=== PATIENT | male | born 1955 | race Caucasian/White ===

== ENCOUNTER 2024-10-12 22:48 | Observation (INO) | payer MEDICARE, OTHER, SELFPAY ==
[2024-10-12 16:03] VITALS: BP 178/93
[2024-10-12 16:29] LABS: % Basophils 0.3 % (0-2); % Eosinophils 0.2 % (0-6); % Immature Granulocytes 0.3 % (0-0.5); % Lymphocytes 17.7 % (20.5-51.1); % Monocytes 6.7 % (1.7-9.3); % Neutrophils 74.8 % (42.2-75.2); Absolute Lymphocytes 1.1 10^3/uL (1.2-3.4); Absolute Monocytes 0.4 10^3/uL (0.1-0.6); Absolute Neutrophils 4.7 10^3/uL (1.4-6.5); Hematocrit 36.6 % (39.0-52.0); Hemoglobin 13.1 g/dL (13.0-18.0); Mean Corp Hgb Conc. 35.8 g/dL (33.0-37.0); Mean Corpuscular Hgb 29.1 pg (27.0-31.0); Mean Corpuscular Volume 81.3 fL (80.0-94.0); Mean Platelet Volume 10.6 fL (7.4-10.4); Nucleated Red Blood Cells % 0 % (-); Platelet Count 151 10^3/uL (130-400); White Blood Cell Count 6.3 10^3/uL (4.8-10.8)
[2024-10-12 16:43] LABS: ALT (SGPT) 26 U/L (0-50); AST (SGOT) 21 U/L (17-59); Albumin 4.3 g/dl (3.5-5.0); Alkaline Phosphatase 49 U/L (38-126); Blood Urea Nitrogen 14 mg/dl (9-20); Calcium 9.4 mg/dl (8.4-10.2); Carbon Dioxide 25 mmol/L (22-30); Chloride 98 mmol/L (98-107); Estimated Creatinine Clearance 100 ml/min; Glucose 162 mg/dl (70-99); Potassium 4.3 mmol/L (3.5-5.1); Sodium 135 mmol/L (135-145); Total Bilirubin 1.2 mg/dl (0.2-1.3); Total Protein 6.9 g/dl (6.3-8.2); eGFR > 60.00
[2024-10-12 18:00] VITALS: BP 162/83
[2024-10-12 19:00] VITALS: BP 163/95
[2024-10-12] MEDS: ANTIVERT 25 MG PO (19:22)
[2024-10-12 20:00] VITALS: BP 141/77
--- NOTE | 2024-10-12 20:55 | ED.GENMED ---
History of Present Illness
General
Chief Complaint: Dizziness
Source: patient
Exam Limitations: none
Time Seen by Provider: 10/12/24 18:26
Nursing documentation reviewed up to this point in time: agreed with
History of Present Illness
History of Present Illness:
68-year-old male with a past medical history of hypertension, hyperlipidemia, diabetes who presents to the emergency department for evaluation of dizziness. Patient reports he woke up at around 3 or 4 AM with severe dizziness which he describes a
room spinning sensation. He reports associated severe nausea and dry heaving. He says that symptoms persisted throughout the day and seem to be getting worse particularly with movement and ultimately EMS was called to bring him to the hospital for
assessment. He does have mild associated headache. He denies any associated neck pain. He denies any change in his vision or speech. Denies any weakness or numbness in extremities. He has not had any recent congestion, URI symptoms, ear aching.
He denies having had similar symptoms in the past. EMS did give him fluids, Zofran, Versed and his symptoms slightly improved but seem to be worsening once again by the time of my assessment.
Review of Systems
Review of Systems
All Other Systems: ROS reviewed and negative except as documented in HPI and ROS
Constitutional: Denies fever or chills
EENT: Reports other (Denies earache); Denies sore throat or runny nose
Respiratory: Denies cough or trouble breathing
Cardiac: Denies chest pain, palpitations or syncope
ABD/GI: Reports nausea; Denies abdominal pain
: Denies flank pain
Musculoskeletal: Denies neck pain or back pain
Neurological: Reports dizzy and headache; Denies weakness or numbness
Phy Exam
Physical Exam
Physical Exam:
General: Awake, alert, oriented x3; sitting with emesis bag
Head: Normocephalic, atraumatic
Eyes: Conjunctiva normal, EOMI without nystagmus, pupils equal round and reactive to light bilaterally; well patient does have dizziness with movement no reproducible nystagmus on [place]-Hallpike
Ears: TMs clear bilaterally although there is some trace amount of cerumen in each canal no impaction
Throat: Airway intact, handling secretions
Neck: Trachea midline, supple without meningismus
Lungs: Clear to auscultation bilaterally, no wheezing, rales, rhonchi
Heart: Regular rate and rhythm, no murmurs, gallops, or rubs
Abd: Soft, non distended, nontender
Neuro: Cranial nerves intact 2 through 12, speech fluid with no dysarthria or aphasia, no limb ataxia, motor and sensory intact upper and lower extremities
Skin: no rash
Extremities: No edema in extremities, equal pulses in all extremities
Scores
NIH Stroke Score
Level of Consciousness: 0 - Alert
LOC Questions: 0-Answers both correctly
LOC Commands: 0-Performs both correctly
Best Horizontal Gaze: 0-Normal
Visual [place]illy: 0=Normal, no visual loss
Facial Palsy: 0=Normal, symmetrical
Motor - Right Arm: 0=No drift 10 seconds
Motor - Left Arm: 0=No drift 10 seconds
Motor - Right Le-No drift 5 seconds
Motor - Left Le-No drift 5 seconds
Limb Ataxia: 0-Absent
Sensation: 0-Normal
Best Language: 0-No aphasia
Dysarthria: 0-Normal
Extinction and Inattention: 0-No abnormality
Total Score:: 0
Heart Failure Risk
Heart Failure Risk Score: Not Applicable
Heart Score for Chest Pain Patients
STEMI patient?: Not applicable
Withdrawal Assessment of Alcohol
Withdrawal Assessment Completed?: Not applicable
Course
Orders/Labs/Results
Orders:
Orders
10/12/24 16:10
EKG [Electrocardiogram (*1)] Urgent
Reason for Study: Vertigo / Dizzy
EKG- Treatment ONCE
10/12/24 16:12
CBC/With Diff [Complete Blood Count/With Diff] Urgent
CMP [Comprehensive Metabolic Panel] Urgent
10/12/24 19:07
CT Head W/o Iv Contrast Urgent
Comment:
Reason For Exam: dizziness, headache, n/v
Meclizine [Antivert] 25 mg PO NOW STA
10/12/24 21:24
diazePAM [Valium Injection] 2 mg IV NOW STA
10/12/24 21:25
0.9% Sodium Chloride 500 ml [Nss] 500 ml IV BOLUS
10/12/24 21:28
Aspirin 325 mg PO NOW STA
Cefdinir [Omnicef] 300 mg PO NOW STA
Clopidogrel Bisulfate [Plavix] 75 mg PO NOW STA
Abnormal Lab Results
10/12/24
16:12
RBC 4.50 L 10^6/uL
(4.70-6.10)
Hct 36.6 L %
(39.0-52.0)
MPV 10.6 H fL
(7.4-10.4)
Absolute Lymphs (auto) 1.1 L 10^3/uL
(1.2-3.4)
Lymphocytes % 17.7 L %
(20.5-51.1)
Glucose 162 H mg/dl
(70-99)
10/12/24 16:12
10/12/24 16:12
Vital Signs
Initial and Last Documented VS:
Initial Vital Signs
Pulse Resp Pulse Ox
87 10 96
10/12/24 16:02 10/12/24 16:02 10/12/24 16:02
Last Documented Vital Signs
Temp Pulse Resp BP Pulse Ox
36.7 C 87 12 141/77 95
10/12/24 16:03 10/12/24 20:45 10/12/24 20:45 10/12/24 20:00 10/12/24 19:00
MDM/Problems Addressed
Differential Diagnosis Includes:
Peripheral vertigo (BPPV, labyrinthitis, eustachian tube dysfunction, etc), central vertigo/stroke
MDM/Problems Addressed:
68-year-old male presents for evaluation of vertigo started abruptly at 3 AM and has been constant and severe particular with movement. Hypertensive otherwise normal vitals. Physical exam as above�while he does have positional dizziness no
reproducible nystagmus noted. Labs sent off including a CBC and a CMP which were unremarkable. EKG shows sinus rhythm. Will send for CT head. Certainly clinical picture seems consistent with peripheral vertigo with abrupt onset of severe
symptoms that are positional but with no reproducible nystagmus and multiple risk factors for stroke certainly this remains in the differential diagnosis and should be ruled out. Will admit for symptom control and further evaluation pending CT.
CT head negative for any acute intracranial pathology there is some left maxillary sinusitis�can cover with Omnicef. Certainly sinus disease could contribute to vertigo. Clinical reassessment despite meclizine and then antiemetics patient still
having severe symptoms of vomiting. Treat with IV Valium. Case discussed with neurology will give aspirin/Plavix. Admit for symptom control and further evaluation of vertigo. Case discussed with hospitalist.
Chronic conditions affecting care:
Hypertension, hyperlipidemia, diabetes�higher risk for stroke
Acute Exacerbation and/or Progression of Chronic Illness:
Acutely hypertensive
Acute Exacerbation and/or Progression of Chronic Illness: HTN
*Radiology
Radiology exam reviewed: radiology read reviewed
*Pulse Oximetry
Patient hypoxic: no
*EKG
Interpreted by ED Provider?: Yes
Heart Rate: 86
Rate: normal
Rhythm: sinus
[place]: normal axis
Interval: normal interval
QRS Pattern: normal QRS
Ischemia: no ischemia
*Critical Care Note
Total Time (30-74mins, 75-104mins- exclusive of procedures): Not Applicable
Data Reviewed
Source: patient, spouse and ambulance crew
Patient Management
Discussion with other providers: Hospitalist (Discussed with hospitalist) and Air Pollution Auditor (Discussed with neurology)
Escalation/DeEscalation of care consider admission/obs:
Admission indicated
ED Attending Note
-
Portions of this chart may have been created with voice recognition software.� Occasional wrong word or��sound alike� substitutions may have occurred due to the inherent limitations of voice recognition software.
Discharge Plan
Departure
Admit to doctor: Ethan
Presentation/result/management discussed w/ accepting MD/DO: Hospitalist
Discharge Problem:
Vertigo, Sinusitis
Prescriptions:
No Action
metformin 1,000 mg Tablet
1,000 mg PO BID
valsartan 160 mg Tablet
160 mg PO DAILY
rosuvastatin 5 mg Tablet
5 mg PO HS
Referrals:
Amarjit Vasquez DO [Family Provider] -
Interventions
Interventions:
*Risk Screen - Suicide Last Done: 10/12/24 16:03
*General Assessment Last Done: 10/12/24 16:03
*Neglect/Abuse Screening Last Done: 10/12/24 16:03
*ED COVID-19 Vaccine History Last Done: 10/12/24 16:46
ED- Neurological Assessment Last Done: 10/12/24 16:46
ED Swallowing Screen Last Done: 10/12/24 19:00
Discharge Date and Time
Print Language: AZERBAIJANI
[2024-10-12] MEDS: VALIUM INJECTION 2 MG IV (21:27)
[2024-10-12] MEDS: NSS 500 IV (21:28)
--- NOTE | 2024-10-12 21:52 | HPS.HSE ---
Addendum entered and electronically signed by Fred Long DO 10/12/24 22:54:
Patient seen and examined independently. Agree with findings and plan as set forth by RAGINI Frances.
Patient is a 68y M with PMH significant for hypertension and DM-II who presents to ED complaining of dizziness and nausea. Patient states that symptoms started early this AM and have persisted throughout the day. Spinning sensation is worse
with movement. Pos nausea / dry heaves. No headache, vision changes, numbness / tingling, etc.
Patient denies any nasal congestion, rhinorrhea, facial pain, etc.
Ass:
Vertigo
Hypertension
Maxillary Sinusitis by CT
DM-II
Plan:
Observe overnight for further evaluation and treatment.
Continue supportive care with Valium PRN.
PT / OT evaluations in the AM.
Check MRI for evidence of posterior circulation CVA.
ASA and Plavix for now.
Neurology evaluation for additional recommendations.
Continue usual home medications.
Follow glucose and cover with SSI as needed.
Likely does not require abx for radiographic sinusitis.
Nasal saline / supportive care.
Original Note:
Family Physician
-
Family Physician: Amarjit Vasquez
Chief Complaint
-
dizziness
History of Present Illness
Patient is a 68-year-old male with past medical history significant for hypertension, hyperlipidemia and diabetes who presented to [facility] ED for evaluation of dizziness. Patient describes waking up at approximately 0300 this morning with the
room spinning. Denies any injury or trauma. Patient reports the dizziness has been persistent all day and this afternoon had associated nausea and heaving. Patient states if he lies on either side he can get the spinning to subside but once he moves
it starts up again. He continues to have associated nausea. Denies any vision changes, any neck pain or headache.
Medical History
Past Medical History
Past Medical History: Reports Other
Additional Past Medical History:
hypertension
hyperlipidemia
diabetes
Past Surgical History: Reports Other
Additional Past Surgical History:
Bilateral knee replacements
cataract extraction
Social History
Tobacco: Former Smoker (quit 25 years ago, 84 pack year history )
Alcohol: Occasional
Drug: None
Personal:
Living: With Family
Employment: Retired
Family History
Family History: Not pertinent
Allergies / Home Medications
Allergies reflects when Allergies were last updated in [employer].
Home Medications with original date entered in [employer]
Allergy/Medication List:
Allergies
Allergy/AdvReac Type Severity Reaction Status Date / Time
Penicillins Allergy Rash Verified 10/12/24 16:03
Home Medications
metformin 1,000 mg tablet 1,000 mg PO BID 10/12/24
rosuvastatin 5 mg tablet 5 mg PO HS 10/12/24
valsartan 160 mg tablet 160 mg PO DAILY 10/12/24
Review of Systems
-
History Source: Patient
Constitutional: Reports Sleep Disturbance
EENT: Reports No Symptoms
Respiratory: Reports No Symptoms
Cardiac: Reports No Symptoms
Abdomen/GI: Reports Nausea
: Reports No Symptoms
Musculoskeletal: Reports No Symptoms
Skin: Reports No Symptoms
Neurological: Reports Dizzy and Headache
Endocrine: Reports No Symptoms
Hematologic/Lymphatic: Reports No Symptoms
Psych: Reports No Symptoms
Physical Exam
Vital Signs
Vital Signs
Temp Pulse Resp BP Pulse Ox
98.0 F 87 12 141/77 95
10/12/24 16:03 10/12/24 20:45 10/12/24 20:45 10/12/24 20:00 10/12/24 19:00
Physical Exam
General: Well Developed, Well Nourished, No Apparent Distress, Comfortable and Conversant
HEENT: NormoCephalic, Moist mucous membranes, Atraumatic, PERRLA, [place] Conjunctivae, Nose Appears Normal and Ears Appear Normal
Respiratory: Clear and Non Labored Respirations
Cardiac: S1/S2, Regular Rhythm and Murmur; No Rub or Gallop
Breast: Deferred by me
GI: Soft, Non Tender, Non Distended and Normal Bowel Sounds; No Organomegaly
Rectal: Deferred by Provider
Genito-urinary: Deferred by me
Musculoskeletal: No Clubbing, No Cyanosis and No Edema
Skin: Warm and IV/Catheter Site; No Rash
Neuro: Awake, Alert, AO x 3 and Nonfocal/grossly intact
Hematologic/Lymphatic: No Lymphadenopathy
Psych: Calm and Intact Judgment/Insight
Laboratory Results
-
10/12/24 16:12
10/12/24 16:12
Laboratory Results
Total Bilirubin 1.2 mg/dl (0.2-1.3) 10/12/24 16:12
AST 21 U/L (17-59) 10/12/24 16:12
ALT 26 U/L (0-50) 10/12/24 16:12
Alkaline Phosphatase 49 U/L (38-126) 10/12/24 16:12
Data Reviewed
-
CT Scan: Report Reviewed by me (Head CT: There are no focal or acute intracranial abnormalities. There is mild cortical atrophy. There is left maxillary sinusitis)
Medical Tests (Nuc Med, Echo, EKG etc): Report Reviewed by me (EKG: NORMAL SINUS RHYTHM MINIMAL VOLTAGE CRITERIA FOR LVH, MAY BE NORMAL VARIANT ( R in aVL ))
Lab Data: Labs Reviewed by me
Impression/Plan
-
IMPRESSION/PLAN:
#Vertigo VS. CVA/TIA
Head CT: There are no focal or acute intracranial abnormalities.
There is mild cortical atrophy.
There is left maxillary sinusitis
- Admit to Telemetry
- PRN Valium
- Saline nasal spray
- Consult Neurology
- Brain MRI
#hypertension
- continue valsartan
#hyperlipidemia
- continue rosuvastatin
#diabetes
- continue metformin
Code Status: Full Code
DVT Prophylaxis: SCDs
[2024-10-12] MEDS: ASPIRIN 325 MG PO (22:24)
[2024-10-12] MEDS: PLAVIX 75 MG PO (22:24)
[2024-10-12] MEDS: OMNICEF 300 MG PO (22:24)
[2024-10-13] VITALS (18 sets, daily range): BP systolic 136–171; BP diastolic 62–91; PULSE 70–75; BMI 27.4; BMI 26.2
[2024-10-13 03:25] LABS: Urine Albumin Negative (Neg - Trace); Urine Bilirubin Negative (Negative); Urine Character Clear (Clear); Urine Color Yellow; Urine Glucose Negative (Negative); Urine Ketone Negative (Negative); Urine Leukocyte Negative (Negative); Urine Nitrite Negative (Negative); Urine Occult Blood Negative (Negative); Urine Urobilinogen Negative (Neg - 1+)
[2024-10-13] MEDS: FLUSH (NSS) 1 FLUSH IV (05:56)
[2024-10-13 06:31] LABS: Hemoglobin 13.1 g/dL (13.0-18.0); Mean Corp Hgb Conc. 35.4 g/dL (33.0-37.0); Mean Platelet Volume 10.7 fL (7.4-10.4); Platelet Count 157 10^3/uL (130-400); Red Blood Cell Count 4.51 10^6/uL (4.70-6.10); Red Cell Dist. Width 11.9 % (11.5-14.5); White Blood Cell Count 5.7 10^3/uL (4.8-10.8)
[2024-10-13 06:35] LABS: PT 13.7 Sec (11.4-14.6)
[2024-10-13 06:36] LABS: APTT 26.9 Sec (23.4-35.0)
[2024-10-13 06:47] LABS: HDL Cholesterol 34 mg/dl; LDL Cholesterol, Calculated 46 mg/dl; Total Cholesterol 117 mg/dl (50-199); Triglyceride 189 mg/dl (10-149); Very Low Density Lipoprotein 37 mg/dl (0-30)
[2024-10-13 06:50] LABS: Troponin I < 0.012 ng/ml
[2024-10-13 07:00] LABS: Erythrocyte Sed Rate 19 mm/hour (0-20)
[2024-10-13] MEDS: DIOVAN 160 MG PO (08:19)
[2024-10-13] MEDS: LOW STRENGTH ASPIRIN 81 MG PO (08:20)
[2024-10-13] MEDS: GLUCOPHAGE 1000 MG PO ×2 (08:20→22:38)
[2024-10-13] MEDS: VALIUM INJECTION 2 MG IV (08:33)
[2024-10-13 08:36] LABS: Glycohemoglobin (HgbA1c) 7.3 % (4.0-5.6)
[2024-10-13 08:37] LABS: Glucose - Point of Care 159 mg/dl (70-99)
[2024-10-13] MEDS: NOVOLOG FLEXPEN-LOW RESISTANCE SC ×2 (08:42→16:47)
--- NOTE | 2024-10-13 09:05 | W.PN.HOSP.TC ---
Today's Communication/Plan
-
see bold
Assessment / Plan
Assessment / Plan
HPI: 68y M with PMH significant for hypertension and DM-II who presents to ED complaining of dizziness and nausea. Patient states that symptoms started early this AM and have persisted throughout the day. Spinning sensation is worse with
movement. Pos nausea / dry heaves. No headache, vision changes, numbness / tingling, etc.
Patient denies any nasal congestion, rhinorrhea, facial pain, etc.
#Vertigo
#BPPV
Head CT negative
Appreciate neurology input, who suspects BPV left ear with positive [place]-Hallpike
Neurology states no need for MRI
PT/OT, meclizine as needed
#Headache
Toradol 50 mg IV x 1, acetaminophen 1 g x 1, Compazine 10 mg IV x 1
#Essential hypertension
Continue home Diovan 160 mg daily
Blood pressure elevated, start amlodipine 5 mg daily
#Hyperlipidemia
Continue statin
#Type 2 diabetes
Hemoglobin A1c 7.1
Carb controlled diet, continue home metformin, sliding scale insulin
DVT prophylaxis�subcu Lovenox
Full code
Total time spent to see the patient on the floor, examine the patient, review data and lab results, discuss treatment plan with patient, nursing staff around 52 minutes.
Physical Exam
General: No acute distress
HEENT: Normocephalic, Atraumatic, EOMI, MMM
Respiratory: Clear to Auscultation bilaterally
Cardiac: Normal S1/S2, Regular Rate and Rhythm
GI: Soft, Nontender, Nondistended, Normal Bowel Sounds
Extremities: No Clubbing, Cyanosis, or Edema
Neuro: Nonfocal/Grossly Intact
Psych: Calm, Cooperative
Derm: No Visible lesions
Anticipated Discharge: Within 24 hours
Subjective/Interval History
-
Date of Service: October 13, 2024
Vertigo resolved. Still has lightheadedness. Also has a left posterior headache, 8 out of 10 in intensity. No fever, no vomiting.
Objective Data
-
Labs:
Laboratory Results
10/13/24
05:54
WBC 5.7
Hgb 13.1
Hct 37.0 L
Plt Count 157
PT 13.7
INR 1.00
APTT 26.9
Vital Signs:
Vital Signs
Temp Pulse Resp BP Pulse Ox
98.0 F 73 18 147/62 97
10/12/24 16:03 10/13/24 08:27 10/13/24 08:27 10/13/24 08:27 10/13/24 08:27
[2024-10-13] MEDS: ZOFRAN 4 MG IV (09:37)
[2024-10-13 11:07] LABS: Glucose - Point of Care 192 mg/dl (70-99)
[2024-10-13] MEDS: NOVOLOG FLEXPEN-LOW RESISTANCE 1 UNITS SC (11:32)
[2024-10-13] MEDS: TYLENOL 1000 MG PO (12:23)
[2024-10-13] MEDS: TORADOL 15 MG IV (12:24)
[2024-10-13] MEDS: COMPAZINE 10 MG IV (12:24)
--- NOTE | 2024-10-13 13:22 | CON.NEURO ---
Neuro Assessment/Plan
Assessment
Head CT mild microvascular changes
BPPV left ear, with positive debi hallpike
Paul maneuver performed with relief, can move head and stand up, walk a few steps without return of vertigo but he is still nauseous
instructed patient to remain upright until bedtime
not a stroke, no need for MRI or further work up, no need for aspirin/plavix
Consultation
Order
Date of Consultation: 10/13/24
Requesting Provider: Dr. Justice
Reason for Consult: Vertigo
Subjective/Objective
Subjective Data
Date of Service: October 13, 2024
68 year old man with h/o DM2, HTN presents yesterday with vertigo, nausea beginning earlier in the day.
if he stays still the vertigo will go away and is triggered by movement
No vision loss, diplopia, hearing changes, tinnitus, weakness, numbness.
Objective Data
Vital Signs
Temp Pulse Resp BP Pulse Ox
36.7 C 71 12 164/85 97
10/12/24 16:03 10/13/24 09:15 10/13/24 09:15 10/13/24 09:15 10/13/24 08:27
Lab Results
10/13/24 05:54
10/12/24 16:12
PT 13.7 Sec (11.4-14.6) 10/13/24 05:54
INR 1.00 10/13/24 05:54
APTT 26.9 Sec (23.4-35.0) 10/13/24 05:54
Sodium 135 mmol/L (135-145) 10/12/24 16:12
Potassium 4.3 mmol/L (3.5-5.1) 10/12/24 16:12
BUN 14 mg/dl (9-20) 10/12/24 16:12
Glucose 162 mg/dl (70-99) H 10/12/24 16:12
Calcium 9.4 mg/dl (8.4-10.2) 10/12/24 16:12
LDL Cholesterol, Calc 46 mg/dl 10/13/24 05:54
Patient Allergies
Penicillins Allergy (Verified 10/12/24 16:03)
Rash
Physical Exam
-
AAOx3 speech clear, language intact
VFF, EOMI, no nystagmus
[place] Hallpike positive to the left
full strength b/l UE/LE
Medications
-
Active Medications
Generic Name Dose Route Start Last Admin
Trade Name Freq PRN Reason Stop Dose Admin
Aspirin 81 mg 10/13/24 08:00 10/13/24 08:20
Aspirin 81 Mg Chewable Tablet PO 11/10/24 07:59 81 mg
DAILY GILBERTO Administration
Clopidogrel Bisulfate 75 mg 10/13/24 08:00 10/13/24 08:20
Clopidogrel 75 Mg Tablet PO 11/10/24 07:59 Not Given
DAILY GILBERTO
Dextrose 12.5 grams 10/13/24 03:08
Dextrose 50% (0.5 Grams/Ml) 50 Ml Syringe IV 11/10/24 03:07
[id number] PRN
hypoglycemia
Protocol
Diazepam 2 mg 10/13/24 03:08 10/13/24 08:33
Diazepam 10 Mg/2 Ml Inj IV 11/10/24 03:07 2 mg
Q6HPRN PRN Administration
dizziness
Glucagon 1 mg 10/13/24 03:08
Glucagon 1 Mg Vial IM 11/10/24 03:07
PRN PRN
hypoglycemia
Protocol
Insulin Aspart 0 units 10/13/24 07:30 10/13/24 11:32
Insulin Aspart Low Resistance 300 Units/3 Ml Pen.Injctr SC 11/10/24 07:29 1 units
AC GILBERTO Administration
Protocol
Metformin HCl 1,000 mg 10/13/24 08:00 10/13/24 08:20
Metformin 1000 Mg Regular Release Tablet PO 11/10/24 07:59 1,000 mg
BID GILBERTO Administration
Ondansetron HCl 4 mg 10/13/24 03:08 10/13/24 09:37
Ondansetron 4 Mg/2 Ml Vial IV 11/10/24 03:07 4 mg
Q6HPRN PRN Administration
NAUSEA/VOMITING
Rosuvastatin Calcium 5 mg 10/13/24 22:00
Rosuvastatin (Crestor) 5 Mg Tablet PO 11/10/24 21:59
HS GILBERTO
Sodium Chloride 2 sprays 10/13/24 03:08
Sodium Chloride 0.65% Nasal [place] 45 Ml Bottle NASAL 11/10/24 03:07
QIDPRN PRN
nasal congestion
Sodium Chloride 0 flush 10/13/24 04:00 10/13/24 05:56
Sodium Chloride 0.9% (Flush) Syringe IV 11/10/24 03:59 1 flush
PER PROTOCOL GILBERTO Administration
Valsartan 160 mg 10/13/24 08:00 10/13/24 08:19
Valsartan 160 Mg Tablet PO 11/10/24 07:59 160 mg
DAILY GILBERTO Administration
Home Medications
�Medication �Instructions �Recorded
metformin 1,000 mg tablet 1,000 mg PO BID 10/12/24
rosuvastatin 5 mg tablet 5 mg PO HS High Cholesterol 10/12/24
valsartan 160 mg tablet 160 mg PO DAILY Blood Pressure 10/12/24
naproxen sodium 220 mg tablet 220 mg PO BID PRN SCHUMACHER/pain 10/13/24
(Aleve)
[2024-10-13] MEDS: MAXALT MLT (ORALLY DISINTEGRATING) 10 MG PO (15:30)
[2024-10-13] MEDS: NORVASC 5 MG PO (15:30)
[2024-10-13 16:43] LABS: Glucose - Point of Care 121 mg/dl (70-99)
--- NOTE | 2024-10-13 17:05 | VATNOTE ---
Patient with phs on the left arm. Patient states that he's being dc'd tommorrow and does not want the pre hospital site changed. Offered to change the site 10/14 if the patient stays. Will follow up.
[2024-10-13 21:30] LABS: Glucose - Point of Care 140 mg/dl (70-99)
[2024-10-13] MEDS: CRESTOR 5 MG PO (22:38)
[2024-10-14 03:37] VITALS: BP 141/74
[2024-10-14 07:09] LABS: Glucose - Point of Care 157 mg/dl (70-99)
[2024-10-14 07:45] VITALS: BP 144/75
--- NOTE | 2024-10-14 08:03 | W.PN.HOSP.TC ---
Today's Communication/Plan
-
Discharge today
Assessment / Plan
Assessment / Plan
HPI: 68y M with PMH significant for hypertension and DM-II who presents to ED complaining of dizziness and nausea. Patient states that symptoms started early this AM and have persisted throughout the day. Spinning sensation is worse with
movement. Pos nausea / dry heaves. No headache, vision changes, numbness / tingling, etc.
Patient denies any nasal congestion, rhinorrhea, facial pain, etc.
#Vertigo
#BPPV
Head CT negative
Appreciate neurology input, who suspects BPV left ear with positive [place]-Hallpike
Neurology states no need for MRI
PT/OT, meclizine as needed
No vertigo or dizziness on the day of discharge
Medically stable for discharge, outpatient vestibular rehab prescription has been provided
#Headache
Resolved status post Toradol 50 mg IV x 1, acetaminophen 1 g x 1, Compazine 10 mg IV x 1
#Essential hypertension
Continue home Diovan 160 mg daily
Blood pressure elevated, started amlodipine 5 mg daily -continue upon discharge
#Hyperlipidemia
Continue statin
#Type 2 diabetes
Hemoglobin A1c 7.1
Carb controlled diet, continue home metformin, sliding scale insulin
DVT prophylaxis�subcu Lovenox
Full code
Physical Exam
General: No acute distress
HEENT: Normocephalic, Atraumatic, EOMI, MMM
Respiratory: Clear to Auscultation bilaterally
Cardiac: Normal S1/S2, Regular Rate and Rhythm
GI: Soft, Nontender, Nondistended, Normal Bowel Sounds
Extremities: No Clubbing, Cyanosis, or Edema
Neuro: Nonfocal/Grossly Intact
Psych: Calm, Cooperative
Derm: No Visible lesions
Anticipated Discharge: Today
Subjective/Interval History
-
Date of Service: October 14, 2024
Patient reports feeling 100% better. No vertigo, no dizziness. He is now steady on his feet. No headache. No fever, no vomiting. He is eager for discharge today.
Objective Data
-
Vital Signs:
Vital Signs
Temp Pulse Resp BP Pulse Ox
98 F 70 19 141/74 95
10/14/24 03:37 10/14/24 03:37 10/14/24 03:37 10/14/24 03:37 10/14/24 03:37
I&O
10/13/24 10/14/24 10/15/24
06:59 06:59 06:59
Intake Total 240 / 240
Balance 240 / 240
[2024-10-14] MEDS: DIOVAN 160 MG PO (08:40)
[2024-10-14] MEDS: NOVOLOG FLEXPEN-LOW RESISTANCE 300 UNITS SC (08:41)
[2024-10-14] MEDS: NORVASC 5 MG PO (08:41)
[2024-10-14] MEDS: LOW STRENGTH ASPIRIN 81 MG PO (08:41)
[2024-10-14] MEDS: GLUCOPHAGE 1000 MG PO (08:41)
[2024-10-14 08:47] VITALS: BP 144/75
--- NOTE | 2024-10-14 10:49 | W.DCSUMMARY ---
Discharge Summary
Discharge Data
Date of Admission: 10/12/24
Date of Discharge: 10/14/24
-
Pending Results: No
Hospital Course
Discharge diagnosis:
Benign paroxysmal positional vertigo
Headache
Essential hypertension
Hyperlipidemia
Diabetes
Consults: Neurology
Head CT:
There are no focal or acute intracranial abnormalities.
There is mild cortical atrophy.
There is left maxillary sinusitis
Hospital course:
68-year-old male with a past medical history of hypertension, hyperlipidemia, and diabetes who presented with vertigo. Patient was seen in conjunction with neurology, and was found to have left-sided BPPV. His vertigo resolved with the Paul
maneuver. He was seen in conjunction with PT, who recommended outpatient vestibular rehab. A prescription was provided.
Patient also had a headache. This resolved with IV Toradol, Compazine, and Tylenol.
He has essential hypertension. His blood pressure was elevated despite being on his usual valsartan 160 mg p.o. daily. He was started on amlodipine 5 mg daily, and can continue this upon discharge.
Patient is medically stable for discharge. He needs to follow-up with his primary care doctor in 1 week.
Disposition: Home self-care
Discharge planning: Required 39-minute
Discharge Plan
-
Patient Disposition: Home (Routine Discharge)
Discharge Diagnosis/Procedures: Vertigo, essential hypertension, headache
Condition: Good
Diet: Low Fat and Low Cholesterol
Activity: As tolerated
Driving Restrictions: As prior to admission
Referrals:
Amarjit Vasquez DO [Family Provider] - in one week
Prescriptions:
New
amlodipine 5 mg Tablet
5 mg PO DAILY Qty: 30 0RF
acetaminophen [Tylenol Extra Strength] 500 mg Tablet
1,000 mg PO QIDPRN PRN (Reason: headache) Qty: 60 0RF
meclizine 25 mg Tablet
25 mg PO TIDPRN PRN (Reason: dizziness) Qty: 30 0RF
Continued
metformin 1,000 mg Tablet
1,000 mg PO BID
valsartan 160 mg Tablet
160 mg PO DAILY
rosuvastatin 5 mg Tablet
5 mg PO HS
naproxen sodium [Aleve] 220 mg Tablet
220 mg PO BID PRN (Reason: SCHUMACHER/pain)
Discharge Orders:
Discharge Patient (As Directed); Ordered 10/14/24
Ordered By: Roberto Justice
Discharge Date and Time
Discharge Date/Time: 10/14/24 12:14
Print Language: TONGAN
[2024-10-14 11:30] VITALS: BP 139/92
--- NOTE | 2024-10-14 11:51 | PTCARENOTE ---
Pt. given discharge paperwork and vestibular therapy script.
== END 2024-10-14 12:14 | disposition home or self-care (01) ==
LOC: 4 EAST ACU 22:48
PROVIDERS: Nurse Practitioner Family; Student in an Organized Health Care Education/Training Program; ADMITTING PHYSICIAN Hospitalist; ATTENDING PHYSICIAN Family Medicine; CONSULT PHYSICIAN Psychiatry & Neurology Clinical Neurophysiology; EMERGENCY PHYSICIAN Emergency Medicine; FAMILY PHYSICIAN Family Medicine
DX: H81.12 Benign paroxysmal vertigo, left ear (principal); I10 Essential (primary) hypertension; G31.9 Degenerative disease of nervous system, unspecified; E78.5 Hyperlipidemia, unspecified; J32.0 Chronic maxillary sinusitis; E11.9 Type 2 diabetes mellitus without complications; R11.2 Nausea with vomiting, unspecified; R51.9 Headache, unspecified; Z79.84 Long term (current) use of oral hypoglycemic drugs; Z96.653 Presence of artificial knee joint, bilateral; Z87.891 Personal history of nicotine dependence; Z88.0 Allergy status to penicillin
CPT/HCPCS: 70450; 80053; 80061; 81003; 82962; 83036; 84484; 85025; 85027; 85610; 85652; 85730; 86850; 86900; 86901; 93005; 96361; 96374; 97162; 99285; G0378

== ENCOUNTER 2024-11-04 11:57 | Outpatient (RCR) | payer MEDICARE, OTHER, SELFPAY | END 2024-11-04 23:59 | disposition home or self-care (01) | LOC: RPT 11:57 | PROVIDERS: ATTENDING PHYSICIAN Family Medicine; FAMILY PHYSICIAN Family Medicine | DX: R42 Dizziness and giddiness (principal); Z73.6 Limitation of activities due to disability | CPT/HCPCS: 97112; 97163 ==

== ENCOUNTER 2025-03-12 06:20 | Outpatient (RCR) | payer MEDICARE, OTHER, SELFPAY | END 2025-03-12 23:59 | disposition home or self-care (01) | LOC: RPT 06:20 | PROVIDERS: ATTENDING PHYSICIAN Family Medicine | DX: R42 Dizziness and giddiness (principal); Z73.6 Limitation of activities due to disability | CPT/HCPCS: 97112; 97162 ==